=== PATIENT | female | born 1985 | race Caucasian/White ===

== ENCOUNTER 2016-03-23 16:50 | Emergency (ER) | payer OTHER ==
[2016-03-23 17:02] VITALS: BMI 38.5
--- NOTE | 2016-03-23 17:18 | EDPRACDOC ---
- General Information Chief Complaint: Vaginal Bleeding Stated Complaint: VAG BLEED Time Seen by Provider: 03/23/16 16:56 Information Source: Patient Mode of Arrival: Ambulance Home Medications: Home Medications Aspirin (Enteric Coated) [Ecotrin] 81 mg PO DAILY 03/23/16 Docosahexanoic Acid [Dha] 100 mg PO QHS 03/23/16 MetFORMIN (Immediate Release) [GLUCOPHAGE Immed Release] 1,000 mg PO QHS Vits W-Ca,Fe,FA(<1Mg) [] 1 tab PO QHS 03/23/16 Progesterone,Micronized [Progesterone] 100 mg PO QHS 03/23/16 Pseudoephedrine HCl [Sudafed] 30 - 60 mg PO Q4-6H PRN 03/23/16 Allergies/Adverse Reactions: Allergies Allergy/AdvReac Type Severity Reaction Status Date / Time cephalexin [From Keflex] Allergy Rash-Locali Verified 03/23/16 17:38 zed Latex, Natural Rubber Allergy Rash-Locali Verified 03/23/16 17:38 zed morphine Allergy See Verified 03/23/16 17:38 Comments - History of Present Illness Onset: PLACEMENT SPECIALIST HPI: FALL 2 DAYS AGO ON ICE. FELL ONTO BUTTOCK. CALLED HEALTHY NURSE, IF ALL GOOD, NO BLEEDING SHOULD BE OKAY. TODAY AT WORK STARTED VAGINAL BLEEDING AND CLOT. NO ABD PAIN OR CRAMPS. 13 WEEKS . PT . Blood Type: A+ Pain Severity: None - Treatment Prior to ED Arrival Reported Medications/Treatment PLACEMENT SPECIALIST EMS Treatment ALS ED Past Medical History - History Reviewed Yes Nurses notes reviewed and agree except as marked - Patient Medical History Systemic History: Denies: Cancer - Social Medical History Smoking Status: Former smoker EDM Review of Systems - Review of Systems ROS Negative Except as Marked: Yes All systems reviewed and were negative except as marked - Physical Exam Constitutional: Alert (Awake), No apparent distress Oriented to: Time, Person, Place Last recorded Vital Signs: Last Vital Signs Temp 98.2 F 03/23/16 16:57 Pulse 108 03/23/16 16:57 Resp 20 03/23/16 16:57 BP 153/96 03/23/16 16:57 Pulse Ox 98 03/23/16 16:57 Oxygen Pulse Oxygen Saturation 98 O2 Device Room Air Oxygen Flow Rate Fraction of Inspired Oxygen ( FIO2) - HEENT Head: Normal ( normocephalic) Eye Exam: Normal (PERRL, EOMI, Sclera white) Oropharynx: Normal (Pharynx:Moist without exudate,Gums-no swelling) Nose: No Symptoms Reported (septum midline) Neck: Normal (FROM, trachea at midline) - Respiratory/Cardiovascular Respiratory: Normal - CTA (BBS clear to auscultation without adventitious sounds ) Cardiovascular: Normal (RRR without murmur, gallop or rub) - GI Auscultation: Normal (NABS) Palpation: Normal (Soft,No rebound or guarding, non distended) Tenderness: Non tender Pelayo's Sign: Negative - Musculoskeletal Back: Normal (Non-Tender) Extremities: Normal (Normal tone, Pulses 2+ No cyanosis or edema, FROM) - Integumentary Skin: Normal, Warm, Dry Lymphatics: Normal (no adenopathy) - Neurologic Memory Impaired: Normal Motor Function: Normal (Normal tone, Pulses 2+ No cyanosis or edema, FROM) Cranial Nerve: Normal (CN II-X11 intact sensation, strength 5/5) Cerebellar: Normal Mood Description: Normal Perception: Normal ED Vaginal Exam Cervix: Other (SMALL AMOUNT OF THIN BLOOD FROM OS, CLOSED) Decision Time to Discharge: 19:16 - Departure Yes I personally saw and evaluated the patient. Disposition: Home Condition: Stable Final Diagnosis: Threatened miscarriage Instructions: Threatened Miscarriage (ED) Education/Counseling Given To: Patient, Family Member Education/Counseling Given Regarding: Diagnosis Forms: Excuse Note Additional Instructions: FOLLOW UP WITH OB THIS WEEK.
[2016-03-23 18:34] LABS: LEUKOCYTES/URINE NEG (NEGATIVE); NITRITE/URINE NEG (NEGATIVE); RBC/URINE 0-2 (0-5); URINE OCCULT BLOOD NEG (NEG/TRACE); WBC/URINE 0-2 (0-5)
[2016-03-23 19:55] VITALS: BP 142/85; PULSE 93; TEMP 98.6
[2016-03-24 21:36] LABS: CHLAMY BY NUCLEIC ACID AMP Negative (Negative)
[2016-03-25 08:42] LABS: GC BY NUCLEIC ACID AMP Negative (Negative)
== END 2016-03-23 19:50 | disposition home or self-care (01) ==
LOC: ED 16:50
DX: O20.0 Threatened abortion (principal); Z3A.13 13 weeks gestation of pregnancy
CPT/HCPCS: 81001; 87210; 87220; 87491; 87591; 99283